=== PATIENT | male | born 1935 | race Caucasian/White ===

== ENCOUNTER 2019-10-24 17:54 | Emergency (ER) | payer MEDICARE, OTHER ==
--- NOTE | 2019-10-24 19:05 | ED Physician Documentation ---
History of Present Illness - Stated complaint Stated Complaint: Vision changes - Chief complaint Chief Complaint: Heent - History obtained from History obtained from: Patient - History of Present Illness Timing: Today Pain level max: 0 Pain level now: 0 - Additonal information Additional information: 83-year-old male presents the emergency department stating he has a longstanding history of ocular migraines. This morning he started having vision changes including seeing "spider webs" across both of his eyes and then feeling like there is a pain of glass in front of his eyes. He felt like there were static black dots as well, like "thousand small ants". These did not move or change with movement of his eyes. No trauma. History of dry macular degeneration. Currently his vision is normal and he is asymptomatic. Review of Systems Constitutional: denies: Fever, Chills Eyes: denies: Photophobia, Irritation Nose: denies: Rhinorrhea / runny nose, Congestion Throat: denies: Sore throat Cardiac: denies: Chest pain / pressure GI: denies: Vomiting, Diarrhea Skin: denies: Rash Musculoskeletal: denies: Neck pain, Back pain Neurologic: denies: Headache PD PAST MEDICAL HISTORY - Past Medical History Past Medical History: Yes HEENT: Macular degeneration Other Past Medical History: Ocular migraines - Allergies Allergies/Adverse Reactions: Allergies Allergy/AdvReac Type Severity Reaction Status Date / Time No Known Drug Allergies Allergy Verified 10/24/19 18:03 - Living Situation Living Situation: reports: With family Living Arrangement: reports: At home - Social History Does the pt have substance abuse?: No - Family History Family history: reports: Non contributory PD ED PE NORMAL - Vitals Vital signs reviewed: Yes - General General: Alert and oriented X 3, No acute distress, Well developed/nourished - HEENT HEENT: PERRL, EOMI, Moist mucous membranes, Other (Normal funduscopic exam bilaterally. Normal ultrasound of the eye bilaterally. No retinal detachment.) - Neck Neck: Supple, no meningeal sign - Derm Derm: Warm and dry - Neuro Neuro: Alert and oriented X 3 - Psych Psych: Normal mood, Normal affect Results - Vitals Vitals: Vital Signs - 24 hr 10/24/19 10/24/19 10/24/19 18:03 18:06 18:36 Temperature 36.8 C Heart Rate 62 56 L 59 L Respiratory 16 15 14 Rate Blood Pressure 131/68 H 138/71 H 130/60 O2 Saturation 99 100 100 10/24/19 19:06 Temperature Heart Rate 60 Respiratory 16 Rate Blood Pressure 129/69 O2 Saturation 100 Oxygen O2 Source Room air PD MEDICAL DECISION MAKING - ED course Complexity details: considered differential, d/w patient, d/w family ED course: Patient with visual changes today, consistent with his history of ocular migraine. Started in the left eye, then moved to the right eye, then was in both eyes and now is resolved. No acute findings on funduscopic exam, panoptic ophthalmoscope used. No findings on ultrasound of the eye. Normal optic nerve diameter. No papilledema. No retinal detachment. We will have him follow-up with his commercial appraiser on Saturday. Patient counseled regarding signs and symptoms for which I believe and urgent re-evaluation would be necessary. Patient with good understanding of and agreement to plan and is comfortable going home at this time This document was made in part using voice recognition software. While efforts are made to proofread this document, sound alike and grammatical errors may occur. Departure - Departure Disposition: 01 Home, Self Care Clinical Impression: Ocular migraine Condition: Good Instructions: ED Blurred Vision Follow-Up: Kendal Porter MD [Primary Care Provider] - Comments: Follow-up with your commercial appraiser on Saturday. Return if you worsen. The cause of your symptoms is likely an ocular migraine, but your commercial appraiser should reevaluate you on Saturday. Your ultrasound and exam are normal today. Discharge Date/Time: 10/24/19 19:14
[2019-10-24 19:13] VITALS: BP 129/69
== END 2019-10-24 19:14 | disposition home or self-care (01) ==
LOC: ED 17:54
DX: G43.B0 Ophthalmoplegic migraine, not intractable (principal)
CPT/HCPCS: 99281; 99283

== ENCOUNTER 2019-12-07 09:53 | Outpatient (CLI) | payer MEDICARE, OTHER | END 2019-12-07 09:54 | disposition short-term general hospital (02) | LOC: EMS 09:53 | PROVIDERS: ATTEND Surgery | DX: R07.1 Chest pain on breathing (principal) | CPT/HCPCS: A0425; A0427 ==

== ENCOUNTER 2021-07-28 08:00 | Outpatient (CLI) | payer MEDICARE, OTHER | END 2021-07-28 08:01 | disposition home or self-care (01) | LOC: LAB.S 08:00 | PROVIDERS: ATTEND Emergency Medicine | DX: E87.5 Hyperkalemia (principal) | CPT/HCPCS: 36415; 84132 ==

== ENCOUNTER 2022-10-01 13:14 | Outpatient (CLI) | payer MEDICARE ==
--- NOTE | 2022-10-01 18:43 | XRAY Report ---
PROCEDURE: Lumbar Spine 2 View INDICATIONS: RIGHT LUMBAR RADICULOPATHY TECHNIQUE: 2 views of the lumbar spine were acquired. COMPARISON: None. FINDINGS: Bones: 5 [id number] vertebrae are present. There is normal bony alignment. No vertebral body compression fractures. No suspicious bony lesions. Degenerative disc space narrowing and hypertroph ic facet joints and noted associated with grade 1 anterior listhesis at L4-5 Soft tissues: Overlying bowel gas pattern is normal. No suspicious soft tissue calcifications. 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
== END 2022-10-01 23:59 | disposition home or self-care (01) ==
LOC: DI.S 13:14
PROVIDERS: ATTEND Physician Assistant
DX: M51.36 Other intervertebral disc degeneration, lumbar region (principal); M47.816 Spondylosis without myelopathy or radiculopathy, lumbar region; M43.16 Spondylolisthesis, lumbar region